=== PATIENT | female | born 1995 | race Caucasian/White ===

== ENCOUNTER 2017-09-21 19:40 | Emergency (ER) | payer OTHER ==
[~2017-09-21] VITALS: Ht 160 cm; Wt 70.3 kg
[2017-09-21 22:11] VITALS: BP 127/70
== END 2017-09-21 22:11 | disposition home or self-care (01) ==
LOC: ED 19:40
DX: S50.862A Insect bite (nonvenomous) of left forearm, initial encounter (principal); L02.414 Cutaneous abscess of left upper limb; W57.XXXA Bitten or stung by nonvenomous insect and other nonvenomous arthropods, initial encounter; Y93.89 Activity, other specified; Y92.89 Other specified places as the place of occurrence of the external cause; Y99.8 Other external cause status
CPT/HCPCS: 90715; J1885; J2001

== ENCOUNTER 2017-09-24 15:46 | Emergency (ER) | payer OTHER ==
[~2017-09-24] VITALS: Ht 160 cm; Wt 70.5 kg
[2017-09-24 15:50] VITALS: Ht 160 cm; Wt 70.5 kg
[2017-09-24 16:40] VITALS: BP 102/56
== END 2017-09-24 16:40 | disposition home or self-care (01) ==
LOC: ED 15:46
DX: Z48.01 Encounter for change or removal of surgical wound dressing (principal)

== ENCOUNTER 2017-09-28 19:03 | Emergency (ER) | payer OTHER ==
[~2017-09-28] VITALS: Ht 162.6 cm; Wt 68.9 kg
[2017-09-28 19:09] VITALS: BP 121/73; Ht 162.6 cm; Wt 68.9 kg
== END 2017-09-28 20:12 | disposition home or self-care (01) ==
LOC: ED 19:03
DX: Z48.01 Encounter for change or removal of surgical wound dressing (principal)